=== PATIENT | male | born 1960 | race Hispanic/Latino ===

== ENCOUNTER 2021-08-31 21:45 | Inpatient (IN) | payer BC ==
[2021-08-31 22:38] LABS: Absolute Lymphocytes (CBC) 2.5 K/uL (0.7-4.9); Basophils % 0.6 % (0-1.3); Hematocrit 35.9 % (39.6-49.0); MPV 7.7 fL (7.6-11.3); Protime INR 1.13; RBC Red Blood Cell Count 4.24 M/uL (4.33-5.43)
[2021-08-31 22:53] LABS: ALT/SGPT 45 U/L (12-78); AST/SGOT 22 U/L (15-37); Albumin 3.7 g/dL (3.4-5.0); Alkaline Phosphatase 65 U/L (45-117); BUN Blood Urea Nitrogen 20 mg/dL (7-18); Bicarbonate 27 mmol/L (21-32); Bilirubin Direct < 0.1 mg/dL (0-0.2); Bilirubin Total 0.3 mg/dL (0.2-1.0); Glucose Level 139 mg/dL (74-106); Magnesium 1.7 mg/dL (1.8-2.4); NT PRO-BNP 480 pg/mL (<125); Potassium 3.9 mmol/L (3.5-5.1); Protein, Total 7.2 g/dL (6.4-8.2); Sodium Level 140 mmol/L (136-145); Troponin (Emerg Dept Use Only) < 0.02 ng/mL (0.0-0.045)
--- NOTE | 2021-08-31 23:07 | ER ---
Nurse's Notes [facility] Name: Arya Muro Jr Age: 60 yrs Sex: Male : 1960 Arrival Date: 08/31/2021 Time: 21:49 Bed 20 Private MD: Diagnosis: Chest pain, unspecified Presentation: 08/31 21:54 Chief complaint: Patient states: INTERMITTENT LEFT SIDED CP X 3 WEEKS, WORSE TODAY. sj1 PAIN RESOLVED AT THIS TIME. DENIES N/V/D AND SOB. Coronavirus screen: Vaccine status: Patient reports receiving the 2nd dose of the covid vaccine. Ebola Screen: No symptoms or risks identified at this time. Initial Sepsis Screen: Does the patient meet any 2 criteria? No. Patient's initial sepsis screen is negative. Does the patient have a suspected source of infection? No. Patient's initial sepsis screen is negative. Risk Assessment: Do you want to hurt yourself or someone else? Patient reports no desire to harm self or others. Onset of symptoms was August 10, 2021. 21:54 Method Of Arrival: Ambulatory [facility] 21:54 Acuity: VANESSA 3 sj1 09/01 01:08 Note phone report given to Ha RUBIO. pt updated on bed placement. Pt ready for kc4 transport with belongings. Triage Assessment: 08/31 21:57 General: Appears in no apparent distress. comfortable, Behavior is calm, cooperative, sj1 appropriate for age. Cardiovascular:. 22:00 Pain:. Pain: Complains of pain in chest Pain does not radiate. Pain currently is 0 out sj1 of 10 on a pain scale. at worst was 8 out of 10 on a pain scale. Quality of pain is described as sharp, Pain began. 22:24 EENT: No deficits noted. No signs and/or symptoms were reported regarding the EENT kc4 system. Neuro: No deficits noted. Cardiovascular: Reports chest pain, Denies lightheadedness, nausea, shortness of breath, syncope, vomiting, Heart tones present Capillary refill < 3 seconds JVD is absent Patient's skin is warm and dry. Pulses are all present. Edema is absent. Rhythm is sinus bradycardia Chest pain is described as mild, Pain is 4 out of 10 on a pain scale. quality is sharp. Respiratory: No deficits noted. Airway is patent Breath sounds are clear bilaterally. GI: No deficits noted. No signs and/or symptoms were reported involving the gastrointestinal system. : No deficits noted. No signs and/or symptoms were reported regarding the genitourinary system. Derm: No deficits noted. No signs and/or symptoms reported regarding the dermatologic system. Historical: - Allergies: 21:57 No Known Allergies; sj1 - PMHx: 21:57 Diabetes mellitus; Hypertensive disorder; Hypercholesterolemia; Glaucoma; sj1 - PSHx: 21:57 CATARACT; KNEE SURGERY; sj1 - Immunization history:: Client reports receiving the 2nd dose of the Covid vaccine. - Social history:: Smoking status: Patient denies any tobacco usage or history of. Screenin:33 Abuse screen: Denies threats or abuse. Denies injuries from another. Nutritional kc4 screening: No deficits noted. On no prescribed diet Difficulty chewing/swallowing? No. Tuberculosis screening: No symptoms or risk factors identified. Never had TB. Possible symptoms: None Risk factors: None Intervention for positive screen:. Fall Risk None identified. No fall in past 12 months (0 pts). No secondary diagnosis (0 pts). IV access (20 points). Ambulatory Aid- None/Bed Rest/Nurse Assist (0 pts). Gait- Normal/Bed Rest/Wheelchair (0 pts) Mental Status- Oriented to own ability (0 pts). Total Lala Fall Scale indicates No Risk (0-24 pts). Assessment: 22:33 Pain: Complains of pain in chest Pain does not radiate. Pain. kc4 22:39 General: Appears in no apparent distress. comfortable, obese, Behavior is calm, kc4 cooperative, appropriate for age. Pain:. Neuro: No deficits noted. Level of Consciousness is awake, alert, obeys commands, Oriented to person, place, time, situation, Appropriate for age. Cardiovascular: No deficits noted. Respiratory: No deficits noted. GI: No deficits noted. No signs and/or symptoms were reported involving the gastrointestinal system. : No deficits noted. No signs and/or symptoms were reported regarding the genitourinary system. EENT: No deficits noted. No signs and/or symptoms were reported regarding the EENT system. Derm: No deficits noted. No signs and/or symptoms reported regarding the dermatologic system. Musculoskeletal: No deficits noted. No signs and/or symptoms reported regarding the musculoskeletal system. 09/01 00:48 Reassessment: Patient and/or family updated on plan of care and expected duration. Pain kc4 level reassessed. Patient is alert, oriented x 3, equal unlabored respirations, skin warm/dry/pink. Patient denies pain at this time. Patient states feeling better. Vital Signs: 08/31 21:54 BP 179 / 78; Pulse 65; Resp 18; Temp 98.1; Pulse Ox 97% on R/A; Weight 111.13 kg (R); sj1 Height 5 ft. 2 in. (157.48 cm); Pain 0/10; 22:34 BP 173 / 65 LA Sitting (auto/reg); Pulse 58 MON; Resp 20 S; Temp 98.0(O); Pulse Ox 100% kc4 on R/A; Pain 4/10; 23:00 BP 169 / 70; Pulse 54; Resp 18; Temp 98.8(O); Pulse Ox 100% on R/A; Pain 0/10; kc4 09/01 00:47 BP 171 / 68; Pulse 50; Resp 18; Temp 98.8; Pulse Ox 100% on R/A; Pain 0/10; kc4 08/31 21:54 Body Mass Index 44.81 (111.13 kg, 157.48 cm) sj1 Vitals: 08/31 22:34 Cardiac Rhythm Assessment Sinus juan antonio. kc4 Iván Coma Score: 22:39 Eye Response: spontaneous(4). Verbal Response: oriented(5). Motor Response: obeys kc4 commands(6). Total: 15. ED Course: 21:49 Patient arrived in ED. bp1 21:57 Triage completed. sj1 21:58 Narda Balderas [facility]NP-C [facility]. kb 21:58 Emmanuel Gtz MD is Attending Physician. kb 22:09 Caitlin Alexander is Primary Nurse. kc4 22:20 No apparent distress. kc4 22:20 No provider procedures requiring assistance completed. Inserted saline lock: 18 gauge kc4 in right antecubital area, using aseptic technique. Patient maintains SpO2 saturation greater than 95% on room air. 22:22 Basic Metabolic Panel Sent. kc4 22:22 CBC with Diff Sent. kc4 22:22 LFT's Sent. kc4 22:22 Magnesium Sent. kc4 22:22 NT PRO-BNP Sent. kc4 22:23 PT-INR Sent. kc4 22:23 Troponin (emerg Dept Use Only) Sent. kc4 22:34 Inserted. kc4 22:34 Patient has correct armband on for positive identification. Placed in gown. Bed in low kc4 position. Call light in reach. Side rails up X 1. 22:35 XRAY Chest (1 view) In Process Unspecified. EDMS 22:39 monitoring specialist on. Pulse ox on. NIBP on. kc4 23:01 Arm band placed on right wrist. kc4 23:06 Suha Parker MD is Hospitalizing Provider. kb 23:09 COVID-19 (Coronavirus) Document "Date of Onset" if Symptomatic Sent. kc4 09/01 01:08 Patient admitted, IV remains in place. kc4 Administered Medications: No medications were administered Outcome: 08/31 23:06 Decision to Hospitalize by Provider. kb 09/01 01:07 Admitted to Med/surg accompanied by nurse, via wheelchair, room 208, Report called to vladislav Bonner RN Condition: improved Instructed on the need for admit. 01:13 Patient left the ED. kc4 Signatures: Dispatcher [employer] EDMS Narda Balderas, CHOIR ACCOMPANIST-C CHOIR ACCOMPANIST-Ckb Danika Jennings Kourtney kc4 Carisa Baird, RN RN sj1 Corrections: (The following items were deleted from the chart) 08/31 22:00 21:57 Pain: Denies pain. sj1 sj1 23:27 23:09 CORONAVIRUS drawn and sent. [facility] EDMS
--- NOTE | 2021-08-31 23:07 | EDPHYS ---
Physician Documentation [facility] Name: Arya Muro Jr Age: 60 yrs Sex: Male : 1960 Arrival Date: 08/31/2021 Time: 21:49 Bed 20 Private MD: ED Physician Emmanuel Gtz HPI: 08/31 23:27 This 60 yrs old Male presents to ER via Ambulatory with complaints of Chest kb Pain. 23:27 The patient or guardian reports chest pain that is located primarily in the chest kb diffusely. Onset: 3 week(s) ago. The pain does not radiate. Associated signs and symptoms: Pertinent positives: shortness of breath. The chest pain is described as a pressure. Duration: The patient or guardian reports multiple episodes. Modifying factors: The symptoms are alleviated by rest, the symptoms are aggravated by activity. Severity of pain: At its worst the pain was moderate in the emergency department the pain is unchanged. The patient has not experienced similar symptoms in the past. The patient has not recently seen a physician. Pt reports intermittent chest pain for 3-4 weeks with shortness of breath on exertion. States it became more intense today. Historical: - Allergies: 21:57 No Known Allergies; sj1 - PMHx: 21:57 Diabetes mellitus; Hypertensive disorder; Hypercholesterolemia; Glaucoma; sj1 - PSHx: 21:57 CATARACT; KNEE SURGERY; sj1 - Immunization history:: Client reports receiving the 2nd dose of the Covid vaccine. - Social history:: Smoking status: Patient denies any tobacco usage or history of. ROS: 23:26 Constitutional: Negative for fever, chills, and weight loss. kb 23:26 Cardiovascular: Positive for chest pain, Negative for edema, orthopnea, palpitations, paroxysmal nocturnal dyspnea. 23:26 Respiratory: Positive for dyspnea on exertion, Negative for cough, hemoptysis, orthopnea, pleurisy, shortness of breath, sputum production, wheezing. 23:26 All other systems are negative. Exam: 23:26 Constitutional: This is a well developed, well nourished patient who is awake, alert, kb and in no acute distress. Head/Face: Normocephalic, atraumatic. ENT: Moist Mucous membranes Respiratory: Respirations even and unlabored. No increased work of breathing, no retractions or nasal flaring. Skin: Warm, dry with normal turgor. Normal color. MS/ Extremity: Pulses equal, no cyanosis. Neurovascular intact. Full, normal range of motion. Neuro: Awake and alert, GCS 15, oriented to person, place, time, and situation. Moves all extremities. Normal gait. Psych: Awake, alert, with orientation to person, place and time. Behavior, mood, and affect are within normal limits. 23:26 Cardiovascular: Rate: normal, Heart sounds: murmur. Vital Signs: 21:54 BP 179 / 78; Pulse 65; Resp 18; Temp 98.1; Pulse Ox 97% on R/A; Weight 111.13 kg (R); sj1 Height 5 ft. 2 in. (157.48 cm); Pain 0/10; 22:34 BP 173 / 65 LA Sitting (auto/reg); Pulse 58 MON; Resp 20 S; Temp 98.0(O); Pulse Ox 100% kc4 on R/A; Pain 4/10; 23:00 BP 169 / 70; Pulse 54; Resp 18; Temp 98.8(O); Pulse Ox 100% on R/A; Pain 0/10; kc4 09/01 00:47 BP 171 / 68; Pulse 50; Resp 18; Temp 98.8; Pulse Ox 100% on R/A; Pain 0/10; kc4 08/31 21:54 Body Mass Index 44.81 (111.13 kg, 157.48 cm) sj1 Iván Coma Score: 08/31 22:39 Eye Response: spontaneous(4). Verbal Response: oriented(5). Motor Response: obeys kc4 commands(6). Total: 15. MDM: 22:02 Patient medically screened. kb 23:05 Data reviewed: vital signs, nurses notes. Data interpreted: Pulse oximetry: on room air kb is 100 %. Interpretation: normal. Counseling: I had a detailed discussion with the patient and/or guardian regarding: the historical points, exam findings, and any diagnostic results supporting the discharge/admit diagnosis, lab results, radiology results, the need for further work-up and treatment in the hospital. Physician consultation: Jimmie ARMANDO was contacted at 23:06, regarding admission, to the telemetry unit. patient's condition, and will see patient in ED, shortly. 08/31 21:58 Order name: Basic Metabolic Panel; Complete Time: 22:58 kb 08/31 21:58 Order name: CBC with Diff; Complete Time: 22:41 kb 08/31 21:58 Order name: LFT's; Complete Time: 22:58 kb 08/31 21:58 Order name: Magnesium; Complete Time: 22:58 kb 08/31 21:58 Order name: NT PRO-BNP; Complete Time: 22:58 kb 08/31 21:58 Order name: PT-INR; Complete Time: 22:41 kb 08/31 21:58 Order name: Troponin (emerg Dept Use Only); Complete Time: 22:58 kb 08/31 21:58 Order name: XRAY Chest (1 view) kb 08/31 21:58 Order name: EKG; Complete Time: 21:59 kb 08/31 21:58 Order name: Cardiac monitoring; Complete Time: 22:24 kb 08/31 23:07 Order name: COVID-19 (Coronavirus) Document "Date of Onset" if Symptomatic kb 08/31 23:28 Order name: SARS-COV-2 RT PCR; Complete Time: 00:44 EDMS 08/31 23:40 Order name: CONS Physician Consult EDMS 08/31 21:58 Order name: EKG - Nurse/Tech; Complete Time: 22:23 kb 08/31 21:58 Order name: IV Saline Lock; Complete Time: 22:22 kb 08/31 21:58 Order name: Labs collected and sent; Complete Time: 22:22 kb 08/31 21:58 Order name: O2 Per Protocol; Complete Time: 22:22 kb 08/31 21:58 Order name: O2 Sat Monitoring; Complete Time: 22:22 kb Administered Medications: No medications were administered Disposition: 09/01 03:45 Co-signature as Attending Physician, Emmanuel Gtz MD I agree with the assessment and rn plan of care. Attestation: The patient's history, exam findings, diagnostics, and a summary of any interventions or procedures was reviewed in detail with Narda BAEZ. Disposition Summary: 08/31/21 23:06 Hospitalization Ordered Hospitalization Status: Observation kb Provider: Suha Parker Location: Telemetry/MedSurg (observation) kb Condition: Stable kb Problem: new kb Symptoms: are unchanged kb Bed/Room Type: Standard Room Assignment: 208(09/01/21 00:31) mw Diagnosis - Chest pain, unspecified samira Discharge Instructions: - Discharge Summary Sheet kc4 Forms: - Medication Reconciliation Form kb - SBAR form kc4 Signatures: Dispatcher [employer] EDMS Narda Balderas FNP-C FNP-Ckb Webb, Martha, RN RN Emmanuel Aguayo MD MD rn Johnson, Sade, RN RN sj1 Corrections: (The following items were deleted from the chart) 08/31 23:27 23:07 CORONAVIRUS ordered. [facility] 09/01 00:31 08/31 23:06 samira mccabe
--- NOTE | 2021-09-01 00:52 | P.HP ---
Certification for Inpatient Patient admitted to: Observation With expected LOS: <2 Midnights Patient will require the following post-hospital care: None Practitioner: I am a practitioner with admitting privileges, knowledge of patient current condition, hospital course, and medical plan of care. Services: Services provided to patient in accordance with Admission requirements found in Title 42 Section 412.3 of the Code of Federal Regulations <Jimmie Baird - Last Filed: 09/01/21 00:47> Patient History Date of Service: 08/31/21 Reason for admission: chest pain History of Present Illness: Mr. Muro is a 60 yo M with HTN, HLD, DM who presents with 3 weeks of intermittent left sided 10/10 stabbing/squeezing chest pain lasting for 5 minutes a time, worse with movement and relieved with rest and massaging his chest. The episode today was the worst is has ever been. Denies N/V, sob, diaphoresis, palpitations, vision changes. Has never had a full workup by a tobacco drier operator. He was told by his PCP that he had had a 'slight heart attack' in the past. His father has had a stroke. H/H 11.8, BNP 480, initial troponin negative. - Past Medical/Surgical History -: HTN -: HLD -: DM -: glaucoma -: cataract surgery -: knee surgery - Family History Father -: Stroke - Social History Smoking Status: Never smoker Alcohol use: No CD- Drugs: No Caffeine use: Yes Place of Residence: Home <Ann Bairdgreta Lao - Last Filed: 09/01/21 00:47> Date of Service: 09/01/21 <Suha Parker - Last Filed: 09/03/21 10:52> Review of Systems 10-point ROS is otherwise unremarkable General: Unremarkable Eyes: Unremarkable ENT: Unremarkable Respiratory: Unremarkable Cardiovascular: Chest Pain, As per HPI Gastrointestinal: Unremarkable Musculoskeletal: Unremarkable Integumentary: Unremarkable Neurological: Unremarkable Lymphatics: Unremarkable <Ann Bairdgreta Lao - Last Filed: 09/01/21 00:47> Physical Examination - Physical Exam General: Alert, In no apparent distress, Oriented x3, Cooperative HEENT: Atraumatic, PERRLA, Mucous membr. moist/pink, EOMI, Sclerae nonicteric Neck: Supple, 2+ carotid pulse no bruit, No LAD, Without JVD or thyroid abnormality Respiratory: Clear to auscultation bilaterally, Normal air movement Cardiovascular: No edema, Regular rate/rhythm, Normal S1 S2, Other (murmur) Gastrointestinal: Normal bowel sounds, No tenderness Musculoskeletal: No tenderness Integumentary: No rashes Neurological: Normal speech, Normal strength at 5/5 x4 extr, Normal tone, Normal affect Lymphatics: No axilla or inguinal lymphadenopathy - Studies Laboratory Data (last 24 hrs) 08/31/21 22:19: PT 13.0 H, INR 1.13 08/31/21 22:19: WBC 8.20, Hgb 11.8 L, Hct 35.9 L, Plt Count 269 08/31/21 22:19: Sodium 140, Potassium 3.9, BUN 20 H, Creatinine 0.82, Glucose 139 H, Magnesium 1.7 L, Total Bilirubin 0.3, AST 22, ALT 45, Alkaline Phosphatase 65 <Jimmie Baird - Last Filed: 09/01/21 00:47> Assessment and Plan - Problems (Diagnosis) (1) Chest pain Current Visit: Yes Status: Acute Qualifiers: Chest pain type: unspecified Qualified Code(s): R07.9 - Chest pain, unspecified (2) HTN (hypertension) Current Visit: Yes Status: Chronic Qualifiers: Hypertension type: primary hypertension Qualified Code(s): I10 - Essential (primary) hypertension (3) HLD (hyperlipidemia) Current Visit: Yes Status: Chronic Qualifiers: Hyperlipidemia type: unspecified Qualified Code(s): E78.5 - Hyperlipidemia, unspecified (4) T2DM (type 2 diabetes mellitus) Current Visit: Yes Status: Chronic Qualifiers: Diabetes mellitus intermediate card tender insulin use: without intermediate card tender use Diabetes mellitus complication status: without complication Qualified Code(s): E11.9 - Type 2 diabetes mellitus without complications - Plan cardiology consulted, on tele trend troponins, repeat EKG ECHO pending daily ASA, metoprolol, statin PRN morphine and nitroglycerin sliding scale insulin and accuchecks, A1c pending hydralazine PRN for BP spikes magnesium replacement, anemia workup pending DVT ppx Discharge Plan: Home Plan to discharge in: 24 Hours - Advance Directives Does patient have a Living Will: No Does patient have a Durable POA for Healthcare: No - Code Status/Comfort Care Code Status Assessed: Yes (full code ) Critical Care: No Time Spent Managing Pts Care (In Minutes): 70 <OliJimmie Shilo - Last Filed: 09/01/21 00:47> - Problems (Diagnosis) (1) Unstable angina Current Visit: Yes Status: Acute (2) Aortic stenosis Current Visit: Yes Status: Acute (3) HLD (hyperlipidemia) Current Visit: Yes Status: Chronic Qualifiers: Hyperlipidemia type: unspecified Qualified Code(s): E78.5 - Hyperlipidemia, unspecified (4) HTN (hypertension) Current Visit: Yes Status: Chronic Qualifiers: Hypertension type: primary hypertension Qualified Code(s): I10 - Essential (primary) hypertension (5) T2DM (type 2 diabetes mellitus) Current Visit: Yes Status: Chronic Qualifiers: Diabetes mellitus prison insulin use: without prison use Diabetes mellitus complication status: without complication Qualified Code(s): E11.9 - Type 2 diabetes mellitus without complications <Suha Parker - Last Filed: 09/03/21 10:52> Date of Service: 09/01/21 Subjective Chart reviewed. Agree with HPI as above Review of Systems 10-point ROS is otherwise unremarkable Physical Examination - Vital Signs Reviewed - Physical Exam General: Alert, In no apparent distress, Oriented x3 Respiratory: Clear to auscultation bilaterally, Normal air movement Cardiovascular: Regular rate/rhythm, Normal S1 S2, Systolic murmur Gastrointestinal: Normal bowel sounds, Soft and benign, Non-distended, No tender ness Musculoskeletal: No clubbing, No swelling, No tenderness Assessment & Plan - Problems (Diagnosis) (1) Unstable angina Current Visit: Yes Status: Acute (2) Aortic stenosis Current Visit: Yes Status: Acute (3) HLD (hyperlipidemia) Current Visit: Yes Status: Chronic Qualifiers: Hyperlipidemia type: unspecified Qualified Code(s): E78.5 - Hyperlipidemia, unspecified (4) HTN (hypertension) Current Visit: Yes Status: Chronic Qualifiers: Hypertension type: primary hypertension Qualified Code(s): I10 - Essential (primary) hypertension (5) T2DM (type 2 diabetes mellitus) Current Visit: Yes Status: Chronic Qualifiers: Diabetes mellitus intermediate card tender insulin use: without intermediate card tender use Diabetes mellitus complication status: without complication Qualified Code(s): E11.9 - Type 2 diabetes mellitus without complications - Plan Continue with plan of care as mentioned below: 1. Serial troponins and EKG have been negative 2. Appreciate Cardiology consultation 3. Cardiac catheterization Saturday 4. Continue with anti-platelet therapy, anti coagulation, beta-lucho, statin, and O2 as needed 5. IV morphine for pain 6. Nitro p.r.n. 7. Strict blood pressure and blood sugar control 8. GI and DVT prophylaxis Discharge Plan: Home Plan to discharge in: Greater than 2 days - Advance Directives Does patient have a Living Will: No Does patient have a Durable POA for Healthcare: No - Code Status/Comfort Care Code Status Assessed: Yes Code Status: Full Code Critical Care: No Time Spent Managing PTS Care (In Minutes): 35 <Suha Parker - Last Filed: 09/03/21 10:52>
[2021-09-01 01:54] VITALS: BMI 44.8
[2021-09-01] MEDS ORDERED: NITROGLYCERIN 0.4 MG/TAB SL PRN (01:55)
[2021-09-01] MEDS ORDERED: ONDANSETRON 4 MG/2 ML VIAL IV PRN (01:55)
[2021-09-01] MEDS: HYDRALAZINE HCL 20 MG/ML VIAL IV PRN ×2 (02:25→20:47)
[2021-09-01] MEDS: MORPHINE 2 MG/ML SYR IV PRN ×2 (02:26→22:10)
[2021-09-01 03:12] LABS: Absolute Lymphocytes (CBC) 3.2 K/uL (0.7-4.9); Basophils % 0.9 % (0-1.3); Hematocrit 36.7 % (39.6-49.0); Lymphocytes % 34.3 % (15.3-44.8); MPV 7.7 fL (7.6-11.3); RBC Red Blood Cell Count 4.35 M/uL (4.33-5.43)
[2021-09-01 03:50] LABS: ALT/SGPT 40 U/L (12-78); AST/SGOT 21 U/L (15-37); Albumin 3.5 g/dL (3.4-5.0); Alkaline Phosphatase 51 U/L (45-117); BUN Blood Urea Nitrogen 20 mg/dL (7-18); Bicarbonate 26 mmol/L (21-32); Bilirubin Total 0.3 mg/dL (0.2-1.0); Ferritin 14.1 ng/mL (26-388); Folic Acid, (Folate) 11.5 ng/mL (3.1-17.5); Glucose Level 125 mg/dL (74-106); HDL Cholesterol 45 mg/dL (40-60); LDL Cholesterol, Calculated 113 (<130); Magnesium 1.6 mg/dL (1.8-2.4); Phosphorus 3.7 mg/dL (2.5-4.9); Potassium 4.1 mmol/L (3.5-5.1); Protein, Total 7.2 g/dL (6.4-8.2); Sodium Level 141 mmol/L (136-145); Transferrin 322 mg/dL (200-360)
[2021-09-01] MEDS: INSULIN -REGULAR HUMAN 50 UNIT/0.5 ML ML SQ SCH ×4 (07:30→21:00)
[2021-09-01] MEDS ORDERED: PNEUMOCOCCAL VACCINE 0.5 ML IMVAC ONE (08:00)
[2021-09-01] MEDS ORDERED: INFLUENZA VACCINE (for 6+ mo) 0.5 ML DOSE IMVAC ONE (08:00)
--- NOTE | 2021-09-01 08:26 | RAD REPORT ---
EXAM DESCRIPTION: RAD - Chest Single View - 08/31/2021 10:34 pm CLINICAL HISTORY: CHEST PAIN COMPARISON: None TECHNIQUE: AP portable chest image was obtained 08/31/2021 10:34 pm . FINDINGS: No focal lung parenchymal process. Interstitial pattern is mildly prominent due to body whittaker bitus and under penetrated portable technique affects. Significant failure or volume overload not princess pected. Heart and vasculature are normal. No measurable pleural effusion and no pneumothorax. No acut e bony abnormality seen. No acute aortic findings suspected. IMPRESSION: Limited portable chest with no acute cardiopulmonary finding.
[2021-09-01] MEDS ORDERED: ENOXAPARIN 40 MG/0.4 ML SQ SCH (09:00)
[2021-09-01] MEDS: ACETAMINOPHEN 500 MG TAB PO PRN (11:06)
[2021-09-01] MEDS: ASPIRIN EC 81 MG TAB PO SCH (11:06)
[2021-09-01] MEDS: METOPROLOL TAR 50 MG TAB PO SCH ×2 (11:08→20:45)
[2021-09-01] MEDS: hydroCHLOROthiazide 12.5 MG CAP PO SCH (11:08)
[2021-09-01] MEDS: lisinopriL 10 MG TAB PO SCH (11:09)
[2021-09-01] MEDS: OXYBUTYNIN CHLORIDE 5 MG TAB PO SCH (20:45)
[2021-09-01] MEDS: ATORVASTATIN 40 MG TAB PO SCH (20:45)
--- NOTE | 2021-09-01 21:23 | CON ---
Date of Consultation: 09/01/2021 Reason For Consultation: Chest pain. History Of Present Illness: This is a 60-year-old male with a history of hypertension, diabetes, dys lipidemia, presented with chest pain, intermittent left-side squeezing-type, lasts for about 5-10 min utes, worsens with activities. This has been going on for about 2 weeks and getting worse. This for ashish him to come the emergency room. Denies having any other complaints but continues to have chest p ain throughout the day. Past Medical History: Hypertension, dyslipidemia, and diabetes. Medications: Refer to reconciliation sheet for detailed list. Allergies: NO KNOWN DRUG ALLERGIES. Family History: No premature coronary artery disease or cancer. Social History: Does not smoke or drink. Does not use any drugs. Review of Systems: All systems reviewed and were negative except as mentioned in HPI. Physical Examination: Vital Signs: His blood pressure is 142/86, heart rate is 58, temperature is 97.2, breathing at 16. General: Pleasant middle-aged male, in no distress. Head and Neck: Pupils are equal, reactive to light. Intact eye movements. No JVD. No cervical lym phadenopathy. Neck is supple. Thyroid is not enlarged. Lungs: Clear to auscultation bilaterally. No rhonchi, rales, or crackles. No accessory muscle use. Heart: Regular rate and rhythm with aortic systolic murmur. Abdomen: Soft and nontender. Bowel sounds positive. No organomegaly. No muscle tenderness. No ri gidity or rebound. Extremities: No edema, clubbing, or cyanosis. Intact pulses. Skin: No rashes. Neurologic: Alert, awake, oriented x3. No acute focal deficits. Investigations: Troponins x3 are negative. Assessment And Recommendation: 1.Chest pain, which could represent unstable angina. The patient continues to have chest pain. Tro ponins are negative. Agree with aspirin therapy and beta lucho. I also placed the patient on nitr oglycerin patch or use sublingual nitroglycerin p.r.n. The patient will need further ischemic workup , and at this point, we will elect for coronary angiogram to be done. If the patient is chest pain-f ree by tomorrow, the angiogram can be arranged for as an outpatient. Otherwise, we will keep the pat ient throughout the week, and if he continues to be symptomatic, plan for coronary angiogram on . 2.Aortic valve stenosis. By echocardiogram, it appears to be a narrowed valve. The severity is und etermined because of the poor quality of the echocardiogram. I recommend left and right heart cathet erization to further evaluate the presence of severe aortic valve stenosis as a cause of his symptoms . 3.Hypertension. Blood pressure is uncontrolled. Adjust lisinopril as needed for better blood press ure control. Thank you for the consult. /MALORIE Voice ID: [id number] Report ID: [id number]
[2021-09-02] MEDS: INSULIN -REGULAR HUMAN 50 UNIT/0.5 ML ML SQ SCH ×4 (07:30→20:52)
[2021-09-02] MEDS: ASPIRIN EC 81 MG TAB PO SCH (09:25)
[2021-09-02] MEDS: hydroCHLOROthiazide 12.5 MG CAP PO SCH (09:25)
[2021-09-02] MEDS: Enoxaparin 120 MG/0.8 ML SYR SQ SCH ×2 (09:26→20:49)
[2021-09-02] MEDS: lisinopriL 10 MG TAB PO SCH (09:26)
[2021-09-02] MEDS: ACETAMINOPHEN 500 MG TAB PO PRN (09:28)
[2021-09-02] MEDS: METOPROLOL TAR 50 MG TAB PO SCH ×2 (09:29→20:51)
[2021-09-02] MEDS: OXYBUTYNIN CHLORIDE 5 MG TAB PO SCH (20:51)
[2021-09-02] MEDS: ATORVASTATIN 40 MG TAB PO SCH (20:51)
[2021-09-03] MEDS: MORPHINE 2 MG/ML SYR IV PRN (04:06)
[2021-09-03 06:40] LABS: Magnesium 1.9 mg/dL (1.8-2.4); Potassium 4.3 mmol/L (3.5-5.1)
[2021-09-03] MEDS: INSULIN -REGULAR HUMAN 50 UNIT/0.5 ML ML SQ SCH ×4 (07:30→20:58)
[2021-09-03] MEDS: hydroCHLOROthiazide 12.5 MG CAP PO SCH (09:00)
[2021-09-03] MEDS: METOPROLOL TAR 50 MG TAB PO SCH ×2 (09:00→20:56)
[2021-09-03] MEDS: lisinopriL 10 MG TAB PO SCH (09:00)
[2021-09-03] MEDS: Enoxaparin 120 MG/0.8 ML SYR SQ SCH (09:09)
[2021-09-03] MEDS: ASPIRIN EC 81 MG TAB PO SCH (09:10)
--- NOTE | 2021-09-03 10:50 | P.PN ---
Subjective Date of Service: 09/02/21 Patient did have some chest pain last night. Pain was 9/10. Currently the pain is a 3/10. Spoke with Cardiology and plan is to do a heart catheterization on Saturday. Patient also with aortic stenosis which will be evaluated. Review of Systems 10-point ROS is otherwise unremarkable Physical Examination - Vital Signs Temperature: 97.9 F Blood Pressure: 113/62 Pulse: 72 Respirations: 18 Pulse Ox (%): 96 - Physical Exam General: Alert, In no apparent distress, Oriented x3 Respiratory: Clear to auscultation bilaterally, Normal air movement Cardiovascular: Regular rate/rhythm, Normal S1 S2, Systolic murmur Gastrointestinal: Normal bowel sounds, Soft and benign, Non-distended, No tenderness Musculoskeletal: No clubbing, No swelling, No tenderness - Studies Medications List Reviewed: Yes Assessment & Plan - Problems (Diagnosis) (1) Unstable angina Current Visit: Yes Status: Acute (2) Aortic stenosis Current Visit: Yes Status: Acute (3) HLD (hyperlipidemia) Current Visit: Yes Status: Chronic Qualifiers: Hyperlipidemia type: unspecified Qualified Code(s): E78.5 - Hyperlipidemia, unspecified (4) HTN (hypertension) Current Visit: Yes Status: Chronic Qualifiers: Hypertension type: primary hypertension Qualified Code(s): I10 - Essential (primary) hypertension (5) T2DM (type 2 diabetes mellitus) Current Visit: Yes Status: Chronic Qualifiers: Diabetes mellitus penitentiary insulin use: without penitentiary use Diabetes mellitus complication status: without complication Qualified Code(s): E11.9 - Type 2 diabetes mellitus without complications - Plan 1. Serial troponins and EKG have been negative 2. Appreciate Cardiology consultation 3. Cardiac catheterization in the morning 4. Anti-platelet therapy, anti coagulation, beta-lucho, statin, and O2 as needed 5. IV morphine for pain 6. Nitro p.r.n. 7. Strict blood pressure and blood sugar control 8. GI and DVT prophylaxis Discharge Plan: Home Plan to discharge in: Greater than 2 days - Advance Directives Does patient have a Living Will: No Does patient have a Durable POA for Healthcare: No - Code Status/Comfort Care Code Status Assessed: Yes Code Status: Full Code Critical Care: No Time Spent Managing PTS Care (In Minutes): 35
--- NOTE | 2021-09-03 10:55 | P.PN ---
Date of Service: 09/03/21 Subjective Patient without new complaints today. Plan for heart catheterization in the morning. NPO after midnight and hold Lovenox this evening Review of Systems 10-point ROS is otherwise unremarkable Physical Examination - Vital Signs Reviewed - Physical Exam General: Alert, In no apparent distress, Oriented x3 Respiratory: Clear to auscultation bilaterally, Normal air movement Cardiovascular: Regular rate/rhythm, Normal S1 S2, Systolic murmur Gastrointestinal: Normal bowel sounds, Soft and benign, Non-distended, No tenderness Musculoskeletal: No clubbing, No swelling, No tenderness Assessment & Plan - Problems (Diagnosis) (1) Unstable angina Current Visit: Yes Status: Acute (2) Aortic stenosis Current Visit: Yes Status: Acute (3) HLD (hyperlipidemia) Current Visit: Yes Status: Chronic Qualifiers: Hyperlipidemia type: unspecified Qualified Code(s): E78.5 - Hyperlipidemia, unspecified (4) HTN (hypertension) Current Visit: Yes Status: Chronic Qualifiers: Hypertension type: primary hypertension Qualified Code(s): I10 - Essential (primary) hypertension (5) T2DM (type 2 diabetes mellitus) Current Visit: Yes Status: Chronic Qualifiers: Diabetes mellitus prison insulin use: without prison use Diabetes mellitus complication status: without complication Qualified Code(s): E11.9 - Type 2 diabetes mellitus without complications - Plan Continue with plan of care as mentioned below: 1. Serial troponins and EKG have been negative; 2. Appreciate Cardiology consultation 3. Cardiac catheterization in the morning 4. Anti-platelet therapy, anti coagulation, beta-lucho, statin, and O2 as needed 5. IV morphine for pain 6. Nitro p.r.n. 7. Strict blood pressure and blood sugar control 8. GI and DVT prophylaxis
[2021-09-03] MEDS: OXYBUTYNIN CHLORIDE 5 MG TAB PO SCH (20:56)
[2021-09-03] MEDS: ATORVASTATIN 40 MG TAB PO SCH (20:57)
--- NOTE | 2021-09-03 23:14 | P.PN ---
Date of Service: 09/01/21 Subjective Patient evaluated. Chest pain is better. Still slightly there. Awaiting Cardiology input. Possible discharge later today. Review of Systems 10-point ROS is otherwise unremarkable Physical Examination - Vital Signs Reviewed - Physical Exam General: Alert, In no apparent distress, Oriented x3 Respiratory: Clear to auscultation bilaterally, Normal air movement Cardiovascular: Regular rate/rhythm, Normal S1 S2, Systolic murmur Gastrointestinal: Normal bowel sounds, Soft and benign, Non-distended, No tenderness Musculoskeletal: No clubbing, No swelling, No tenderness Extremity: No clubbing, no cyanosis, no edema Assessment & Plan - Problems (Diagnosis) (1) Unstable angina Current Visit: Yes Status: Acute (2) Aortic stenosis Current Visit: Yes Status: Acute (3) HLD (hyperlipidemia) Current Visit: Yes Status: Chronic Qualifiers: Hyperlipidemia type: unspecified Qualified Code(s): E78.5 - Hyperlipidemia, unspecified (4) HTN (hypertension) Current Visit: Yes Status: Chronic Qualifiers: Hypertension type: primary hypertension Qualified Code(s): I10 - Essential (primary) hypertension (5) T2DM (type 2 diabetes mellitus) Current Visit: Yes Status: Chronic Qualifiers: Diabetes mellitus fci insulin use: without fci use Diabetes mellitus complication status: without complication Qualified Code(s): E11.9 - Type 2 diabetes mellitus without complications - Plan Continue with plan of care as mentioned below: 1. Serial troponins and EKG have been negative; awaiting Cardiology input 2. Still with chest pain. May need to add anti coagulation pending Cardiology input 3. Echocardiogram pending 4. Anti-platelet therapy, anti coagulation if Cardiology agreeable, beta- lucho, statin, and O2 as needed 5. IV morphine for pain 6. Nitro p.r.n. 7. Strict blood pressure and blood sugar control 8. GI and DVT prophylaxis
[2021-09-04] MEDS: INSULIN -REGULAR HUMAN 50 UNIT/0.5 ML ML SQ SCH ×3 (07:30→16:30)
--- NOTE | 2021-09-04 08:12 | ECHO ---
HEIGHT: 5 ft 2 in WEIGHT: 245 lb 0 oz DATE OF STUDY: 09/01/[address]: Jimmie Baird 2-DIMENSIONAL: YES M.MODE: YES DOPPLER: YES COLOR FLOW: YES TDS: NO PORTABLE: NO DEFINITY: NO BUBBLE STUDY: NO DIAGNOSIS: CARIOMEGALY CARDIAC HISTORY: CATHERIZATION: NO SURGERY: NO PROSTHETIC VALVE: NO PACEMAKER: NO MEASUREMENTS (cm) DIASTOLIC (NORMALS) SYSTOLIC (NORMALS) IVSd 1.6 (0.6-1.2) LA Diam 3.5 (1.9-4.0) LVEF 67% LVIDd 3.5 (3.5-5.7) LVIDs 2.2 (2.0-3.5) %FS 36% LVPWd 1.5 (0.6-1.2) Ao Diam 2.7 (2.0-3.7) 2 DIMENSIONAL ASSESSMENT: RIGHT ATRIUM: NORMAL LEFT ATRIUM: NORMAL RIGHT VENTRICLE: NORMAL LEFT VENTRICLE: NORMAL TRICUSPID VALVE: NORMAL MITRAL VALVE: MILD MITRAL REGURGITATION PULMONIC VALVE: NORMAL AORTIC VALVE: THICKENED PERICARDIAL EFFUSION: NONE AORTIC ROOT: NORMAL LEFT VENTRICULAR WALL MOTION: NORMAL. DOPPLER/COLOR FLOW: SEE BELOW. COMMENTS: NORMAL LEFT VENTRICULAR EJECTION FRACTION 60-65%. NORMAL WALL MOTION. MODERATE AORTIC STENOSIS. MILD MITRAL REGURGITATION. TECHNOLOGIST: JAYCOB REAL
[2021-09-04] MEDS: METOPROLOL TAR 50 MG TAB PO SCH (08:44)
[2021-09-04] MEDS: ASPIRIN EC 81 MG TAB PO SCH (08:45)
[2021-09-04] MEDS: hydroCHLOROthiazide 12.5 MG CAP PO SCH (08:45)
[2021-09-04] MEDS: lisinopriL 10 MG TAB PO SCH (08:46)
--- NOTE | 2021-09-04 10:03 | P.PN ---
Subjective Date of Service: 09/04/21 Primary Care Provider: [facility] Chief Complaint: chest pain Subjective: Improving, Doing well (No more chest pain noted) Physical Examination - Vital Signs Temperature: 97.1 F Blood Pressure: 135/67 Pulse: 69 Respirations: 18 Pulse Ox (%): 100 - Studies Medications List Reviewed: Yes Assessment & Plan Discharge Plan: Home Plan to discharge in: 24 Hours Physician Review Additional Text: COVID: Negative CXR: COMPARISON: None TECHNIQUE: AP portable chest image was obtained 08/31/2021 10:34 pm . FINDINGS: No focal lung parenchymal process. Interstitial pattern is mildly prominent due to body habitus and under penetrated portable technique affects. Significant failure or volume overload not suspected. Heart and vasculature are normal. No measurable pleural effusion and no pneumothorax. No acute bony abnormality seen. No acute aortic findings suspected. IMPRESSION: Limited portable chest with no acute cardiopulmonary finding. ECHO: MEASUREMENTS (cm) DIASTOLIC (NORMALS) SYSTOLIC (NORMALS) IVSd 1.6 (0.6-1.2) LA Diam 3.5 (1.9-4.0) LVEF 67% LVIDd 3.5 (3.5-5.7) LVIDs 2.2 (2.0-3.5) %FS 36% LVPWd 1.5 (0.6-1.2) Ao Diam 2.7 (2.0-3.7) 2 DIMENSIONAL ASSESSMENT: RIGHT ATRIUM: NORMAL LEFT ATRIUM: NORMAL RIGHT VENTRICLE: NORMAL LEFT VENTRICLE: NORMAL TRICUSPID VALVE: NORMAL MITRAL VALVE: MILD MITRAL REGURGITATION PULMONIC VALVE: NORMAL AORTIC VALVE: THICKENED PERICARDIAL EFFUSION: NONE AORTIC ROOT: NORMAL LEFT VENTRICULAR WALL MOTION: NORMAL. DOPPLER/COLOR FLOW: SEE BELOW. COMMENTS: NORMAL LEFT VENTRICULAR EJECTION FRACTION 60-65%. NORMAL WALL MOTION. MODERATE AORTIC STENOSIS. MILD MITRAL REGURGITATION. Physical Exam: GENERAL: The patient is a well-developed, well-nourished, in no apparent distress. Alert and oriented x3. VITAL SIGNS: Reviewed HEENT: Neck supple. LUNGS: Clear to auscultation. No crackles or wheezes are heard. HEART: Regular rate and rhythm, no appreciable gallops, rubs, murmurs or extra heart sounds ABDOMEN: Soft, nontender, and nondistended. Positive bowel sounds. No hepatosplenomegaly was noted. EXTREMITIES: Without any cyanosis, clubbing, rash, lesions or peripheral edema. NEUROLOGIC: The patient is oriented to person, place and time. Strength and sensation are grossly intact. Face is symmetric. SKIN: Normal color, turgor and temperature. No ulcerations or rashes noted. Impression: Chest pain secondary to unstable angina Hypertension Hyperlipidemia Diabetes mellitus type 2 Urinary incontinence Obesity, BMI 44.8 Plan: Chest pain secondary to unstable angina: Ejection fraction within normal range at 60 to 65%. Moderate aortic stenosis noted. Patient to have heart catheterization today. Await findings and recommendations from cardiology. C ontinue aspirin, metoprolol, lisinopril, and Lipitor. Lovenox currently on hold due to heart catheterization. Hypertension: Improved. Continue with lisinopril 10 mg daily, metoprolol 50 mg 1 pill twice daily, and hydrochlorothiazide 12.5 mg daily Hyperlipidemia: Continue Lipitor 40 mg daily Diabetes mellitus type 2: Metformin held in preparation for heart catheterization. Continue insulin sliding scale. Urinary incontinence: Continue oxybutynin Obesity, BMI 44.8: We will address lifestyle modification education. Code Status: Full Code DVT prophylaxis: Lovenox Advanced Care Planning-30 minutes: Anticipate home in the next 24 hours. Time Spent Managing Pts Care (In Minutes): 55
[2021-09-04] MEDS ORDERED: HEPA 1000U/500MLS 1,000 UNIT/500 ML BAG IV ONE ×2 (11:00→15:56)
[2021-09-04 12:09] VITALS: TEMP 98
[2021-09-04] MEDS ORDERED: NA CHLORIDE 0.9% 500 ML ONE (14:27)
[2021-09-04] MEDS ORDERED: LIDOCAINE 1% 20 ML MDV ONE (15:07)
[2021-09-04] MEDS ORDERED: VERAPAMIL HCL 10 MG/4 ML VIAL IV ONE (15:08)
[2021-09-04] MEDS ORDERED: FENTANYL CITR 100 MCG/2 ML ONE (15:08)
[2021-09-04] MEDS ORDERED: MIDAZOLAM HCL 2 MG/2 ML INJ ONE (15:08)
[2021-09-04] MEDS ORDERED: ATROPINE SULF 1 MG/10 ML SYR IV ONE (15:09)
[2021-09-04] MEDS ORDERED: HEPARIN 5000 UNIT/ML 1 ML VIAL ONE (15:09)
--- NOTE | 2021-09-04 16:31 | OP ---
Date of Procedure: 09/04/2021 Surgeon: ROLAN GUILLEN Procedures Performed: 1.Selective coronary angiogram. 2.Left heart catheterization. 3.Right heart catheterization. Access: Right femoral artery 6-[place] closed with TR band, right IJ 7-[place] closed with manual pres sure. Complications: None. Bleeding: Less than 10 mL. Description Of Procedure: After risks, benefits, and alternatives were explained, the patient agreed to proceed and signed informed consent. The patient was brought into the cardiac catheterization la boratory, prepped and draped in usual sterile fashion. I accessed right femoral artery using a micro puncture kit and ultrasound and inserted 6-[place] sheath. Accessed right IJ using ultrasoun d and micropuncture kit and placed a 7-[place] sheath. Then, I took a 7-[place] balloon-tippe d [place] catheter through the IJ into the RA, RV, PA and wedge. Took the waveform and pressure, and th ermodilution cardiac output was obtained. Then, we removed the [place]. I took a 6-[place] JL4 catheter into the aortic root, engaged the left main, took standard views, and then exchanged for a 6-[place] JR4 catheter and engaged the RCA and took standard views. Then, I took a 4-[place] AL1 catheter into the aortic root with the [place] wire across the aortic valve and upon pullback, gradient was onl y 70 mmHg. Then, we removed the catheter and sheath and placed Angio-Seal for closure with good hemo stasis and the IJ sheath was removed with manual pressure and obtained hemostasis. Findings: 1.Left main is normal. 2.LAD; large and normal. In the mid section, there is a myocardial bridge. 3.The left circumflex is normal, codominant. 4.RCA; codominant and normal. 5.Normal filling pressures. 6.Mild aortic stenosis. Plan: Medical management. SR/MODL Voice ID: [id number] Report ID: [id number]
--- NOTE | 2021-09-04 16:49 | P.DS ---
Admission Date: 09/02/21 Discharge Date: 09/04/21 Primary Care Provider: Hermila Haynes Disposition: ROUTINE DISCHARGE Discharge Condition: GOOD Reason for Admission: chest pain Consultations: Cardiology-Dr. Hoffman Procedures: COVID: Negative CXR: COMPARISON: None TECHNIQUE: AP portable chest image was obtained 08/31/2021 10:34 pm . FINDINGS: No focal lung parenchymal process. Interstitial pattern is mildly prominent due to body habitus and under penetrated portable technique affects. Significant failure or volume overload not suspected. Heart and vasculature are normal. No measurable pleural effusion and no pneumothorax. No acute bony abnormality seen. No acute aortic findings suspected. IMPRESSION: Limited portable chest with no acute cardiopulmonary finding. ECHO: MEASUREMENTS (cm) DIASTOLIC (NORMALS) SYSTOLIC (NORMALS) IVSd 1.6 (0.6-1.2) LA Diam 3.5 (1.9-4.0) LVEF 67% LVIDd 3.5 (3.5-5.7) LVIDs 2.2 (2.0-3.5) %FS 36% LVPWd 1.5 (0.6-1.2) Ao Diam 2.7 (2.0-3.7) 2 DIMENSIONAL ASSESSMENT: RIGHT ATRIUM: NORMAL LEFT ATRIUM: NORMAL RIGHT VENTRICLE: NORMAL LEFT VENTRICLE: NORMAL TRICUSPID VALVE: NORMAL MITRAL VALVE: MILD MITRAL REGURGITATION PULMONIC VALVE: NORMAL AORTIC VALVE: THICKENED PERICARDIAL EFFUSION: NONE AORTIC ROOT: NORMAL LEFT VENTRICULAR WALL MOTION: NORMAL. DOPPLER/COLOR FLOW: SEE BELOW. COMMENTS: NORMAL LEFT VENTRICULAR EJECTION FRACTION 60-65%. NORMAL WALL MOTION. MODERATE AORTIC STENOSIS. MILD MITRAL REGURGITATION. Heart catheterization: Normal coronaries. No further intervention required. Medical problem list: Chest pain secondary to unstable angina status post heart catheterization showing normal coronaries Hypertension Hyperlipidemia Diabetes mellitus type 2 Urinary incontinence Obesity, BMI 44.8 Time Spent Managing Pts Care (In Minutes): 55 Brief History of Present Illness: 60-year-old male with history of diabetes, hypertension, hyperlipidemia presented to the emergency room with chest pain. Patient was admitted for further evaluation and treatment. Hospital Course: Patient presented with chest pain. Patient was admitted for further evaluation and treatment. Cardiac enzymes unremarkable. Patient continued to have chest pain suspicious for unstable angina. Echo showed ejection fraction around 60 to 65%. Moderate aortic stenosis noted. Cardiology evaluated the patient. Cardiology recommended heart catheterization to further evaluate his condition. Heart catheterization performed showed normal coronaries. At discharge patient without chest pain. Blood pressure improved. At discharge patient may continue with aspirin 81 mg daily, metoprolol 50 mg 1 pill twice daily, lisinopril hydrochlorothiazide 10/12.5 mg daily, and Lipitor 40 mg daily. Recommend follow-up with PCP within 1 week to follow-up his hospitalization. Patient may return to work on Saturday. Patient with hypertension. Medications adjusted. Blood pressure improved with current medication. At discharge patient will continue with metoprolol 50 mg 1 pill twice daily and lisinopril hydrochlorothiazide 10/12.5 mg daily. Recommend to maintain blood pressure less than 130/80. Further adjustment can be done by his PCP. Follow-up with PCP and cardiology to monitor his progress. Patient with hyperlipidemia. LDL 113. At discharge patient will continue with Lipitor 40 mg daily. Recommend to recheck labCMP and fasting lipid panel in 1 to 3 months to monitor his progress. Patient with diabetes mellitus type 2. Hemoglobin A1c 7.3. Metformin was held in preparation for heart catheterization. Patient will need to continue to hold Metformin for at least 48 hours. Metformin can be restarted after 48 hours. Recommend to maintain blood sugar less than 140 fasting and less than 200 after meals. Further adjustment can be done by his PCP if blood sugar remains above 200. Recommend to recheck hemoglobin A1c every 3 months to monitor his progress. Recommend follow-up with PCP to further monitor and address. Patient with urinary incontinence. At discharge patient may continue with oxybutynin 5 mg daily. Patient with obesity, BMI 44.8. Lifestyle modification education provided. Vital Signs/Physical Exam: Temp Pulse Resp BP Pulse Ox 98 F 61 15 128/68 98 09/04/21 12:14 09/04/21 16:15 09/04/21 16:15 09/04/21 16:15 09/04/21 12:00 General: Alert, In no apparent distress, Oriented x3, Cooperative HEENT: Atraumatic Neck: Supple Respiratory: Clear to auscultation bilaterally, Normal air movement Cardiovascular: Normal pulses, Regular rate/rhythm Gastrointestinal: Normal bowel sounds, No ascites Musculoskeletal: No erythema, No tenderness, No warmth Integumentary: No tenderness/swelling Neurological: Normal speech, Normal strength at 5/5 x4 extr, Normal tone, Normal affect Laboratory Data at Discharge: WBC 9.20 K/uL (4.3-10.9) 09/01/21 02:51 Hgb 12.1 g/dL (13.6-17.9) L 09/01/21 02:51 Hct 36.7 % (39.6-49.0) L 09/01/21 02:51 Plt Count 264 K/uL (152-406) 09/01/21 02:51 PT 13.0 SECONDS (9.5-12.5) H 08/31/21 22:19 INR 1.13 08/31/21 22:19 Sodium 140 mmol/L (136-145) 09/03/21 05:28 Potassium 4.3 mmol/L (3.5-5.1) 09/03/21 05:28 BUN 19 mg/dL (7-18) H 09/03/21 05:28 Creatinine 0.95 mg/dL (0.55-1.3) 09/03/21 05:28 Glucose 151 mg/dL (74-106) H 09/03/21 05:28 Phosphorus 3.7 mg/dL (2.5-4.9) 09/01/21 02:51 Magnesium 1.9 mg/dL (1.8-2.4) 09/03/21 05:28 Total Bilirubin 0.3 mg/dL (0.2-1.0) 09/01/21 02:51 AST 21 U/L (15-37) 09/01/21 02:51 ALT 40 U/L (12-78) 09/01/21 02:51 Alkaline Phosphatase 51 U/L (45-117) 09/01/21 02:51 Troponin I < 0.02 ng/mL (0.0-0.045) 09/02/21 07:54 Triglycerides 180 mg/dL (<150) H 09/01/21 02:51 Cholesterol 194 mg/dL (<200) 09/01/21 02:51 HDL Cholesterol 45 mg/dL (40-60) 09/01/21 02:51 Cholesterol/HDL Ratio 4.31 09/01/21 02:51 Home Medications: Lisinopril/Hydrochlorothiazide [Lisinopril-Hctz 10-12.5 mg Tab] 1 each PO DAILY 09/01/21 Metformin HCl 1,000 mg PO BID 09/01/21 Metoprolol Tartrate [Lopressor*] 50 mg PO BID 09/01/21 Oxybutynin Chloride 5 mg PO BEDTIME 09/01/21 Aspirin [Aspirin EC 81 MG] 81 mg PO DAILY #90 tablet. 09/04/21 Atorvastatin Calcium [Lipitor] 40 mg PO BEDTIME #30 tab 09/04/21 New Medications: Aspirin [Aspirin EC 81 MG] 81 mg PO DAILY #90 tablet. Atorvastatin Calcium [Lipitor] 40 mg PO BEDTIME #30 tab Physician Discharge Instructions: Patient presented with chest pain. Patient was admitted for further evaluation and treatment. Cardiac enzymes unremarkable. Patient continued to have chest pain suspicious for unstable angina. Echo showed ejection fraction around 60 to 65%. Moderate aortic stenosis noted. Cardiology evaluated the patient. Cardiology recommended heart catheterization to further evaluate his condition. Heart catheterization performed showed normal coronaries. At discharge patient without chest pain. Blood pressure improved. At discharge patient may continue with aspirin 81 mg daily, metoprolol 50 mg 1 pill twice daily, lis inopril hydrochlorothiazide 10/12.5 mg daily, and Lipitor 40 mg daily. Recommend follow-up with PCP within 1 week to follow-up his hospitalization. Patient may return to work on Saturday. Patient with hypertension. Medications adjusted. Blood pressure improved with current medication. At discharge patient will continue with metoprolol 50 mg 1 pill twice daily and lisinopril hydrochlorothiazide 10/12.5 mg daily. Recommend to maintain blood pressure less than 130/80. Further adjustment can be done by his PCP. Follow-up with PCP and cardiology to monitor his progress. Patient with hyperlipidemia. LDL 113. At discharge patient will continue with Lipitor 40 mg daily. Recommend to recheck labCMP and fasting lipid panel in 1 to 3 months to monitor his progress. Patient with diabetes mellitus type 2. Hemoglobin A1c 7.3. Metformin was held in preparation for heart catheterization. Patient will need to continue to hold Metformin for at least 48 hours. Metformin can be restarted after 48 hours. Recommend to maintain blood sugar less than 140 fasting and less than 200 after meals. Further adjustment can be done by his PCP if blood sugar remains above 200. Recommend to recheck hemoglobin A1c every 3 months to monitor his progress. Recommend follow-up with PCP to further monitor and address. Patient with urinary incontinence. At discharge patient may continue with ox ybutynin 5 mg daily. Patient with obesity, BMI 44.8. Lifestyle modification education provided. Diet: ADA Activity: Ad ysabel Followup: NONE,NONE [Primary Care Provider] - Time spent managing pt's care (in minutes): 55
[2021-09-04 18:18] VITALS: O2SAT 99
[2021-09-04 18:46] VITALS: BP 139/72
[2021-09-04] MEDS ORDERED: PNEUMOCOCCAL VACCINE 0.5 ML IMVAC ONE (20:17)
[2021-09-04] MEDS ORDERED: INFLUENZA VACCINE (for 6+ mo) 0.5 ML DOSE IMVAC ONE (20:17)
== END 2021-09-04 20:15 | disposition home or self-care (01) | DRG 287 ==
LOC: ER 21:45 → INTOOBSV 23:44 → OBSVTOIN 23:44 → ERHOLD 23:44 → 2ND 09-01 00:47 → OBSVTOIN 09-02 08:37
PROVIDERS: ADMIT Hospitalist; ATTEND Hospitalist
PROC: B201YZZ Plain Radiography of Multiple Coronary Arteries using Other Contrast (ICD-10-PCS; principal; 2021-09-04)
DX: I20.0 Unstable angina (principal); Z68.41 Body mass index [BMI] 40.0-44.9, adult; Q24.5 Malformation of coronary vessels; I10 Essential (primary) hypertension; E78.5 Hyperlipidemia, unspecified; E11.9 Type 2 diabetes mellitus without complications; R32 Unspecified urinary incontinence; E66.9 Obesity, unspecified; I35.0 Nonrheumatic aortic (valve) stenosis; Z23 Encounter for immunization; Z20.822 Contact with and (suspected) exposure to COVID-19
CPT/HCPCS: 36415; 71045; 80048; 80053; 80061; 80076; 82607; 82728; 82746; 82947; 83036; 83540; 83735; 83880; 84100; 84439; 84443; 84466; 84484; 85025; 85610; 90471; 90732; 93005; 93306; 93460; 94760; 99285; C1760; C1893; G0378; J0360; J1644; J1650; J2250; J2270; J2405; J3010; J7040; Q2035; U0003

== ENCOUNTER 2022-12-28 09:36 | Emergency (ER) | payer BC ==
--- OUTSIDE RECORDS SUMMARY | 2022-12-28 09:40 | XMS REPORT | Continuity of Care Document ---
:1960 Author Organization [facility] t Address [address] [place] [address] Care Team Providers Name Role Phone Gino Olguin Attending Clinician Unavailable Gino Olguin Admitting Clinician Unavailable Chantelle Echeverria Admitting Clinician Unavailable Payers Payer Name Policy Type Policy Number Effective Date Expiration Date S ource Problems This patient has no known problems. Allergies, Adverse Reactions, Alerts Allergy Allergy Status Severity Reaction(s) Onset Inactive Treating Comm ents Source Name Type Date Date Clinician No Known DA Active U [facility] Allergie 6-17 [facility] s 00:00: d 00 [facility] Medications This patient has no known medications. Procedures Procedure Date / Time Performed Performing Clinician [facility] stefan [id number] 2022-07-10 00:00:00 IDMANISH [facility] [id number] [facility]22[facility]07[facility]10 [facility] Start End Encounter Admission Attending Care Care Encounter Source Date/Time Date/Time Type Type Clinicians Facility Department ID 2022-07-10 2022-07-12 Inpatient Gino Boogie MEDI.01 LA00 [id number] [facility] 08:02:00 10:39:00 76 [facility] 2022-04-27 2022-04-27 Outpatient Gino Boogie [facility] LA0 [id number] [facility] 11:00:00 11:00:00 00 [facility] 2022-04-12 2022-04-12 Outpatient EL Gino Olguin RADI LA0 [id number] [facility] 13:28:00 13:28:00 51 [facility] Results Test Description Test Time Test Comments Results Result Comments Source SURGICAL 2022-07-13 16:40:00 Test Item Value Reference Range Interpretation Comme nts SURGICAL RUN DATE: (test 07/13/22 [facility] Reina Pearadelia d - LAB PAGE 1 RUN TIME: 1640 Specimen Inquiry RUN USER: INTERFACE code = PATIENT: DAR MAGGIE RODRIGUEZ ACCHector #: [id number] LOC: JANELLE #: [id number] AGE/SX: 61/M ROOM: RE07/10/22REG DR: Gino Olguin : 56 BED: 1 DIS: 07/12/22 STATUS: DIS IN TLOC: SPEC #: 22:[facility]:[id number] RECD: 07/11/22545 STATUS: EJ CAMEJO #: [id number] EDILIA: 07/10/221414 [facility] DR: Gino Olguin MD ENTERED: 07/11/22 SP TYPE: SURGICAL OTHR DR: Chantelle Echeverria RAIL FILLER ORDERED: 16436/2, 13800, ANATOMIC SPEC, SPECIMEN TRAC K COPIES TO: Chantelle Echeverria RAIL FILLER [address] [place] [address] [email or web address] [address] [facility] [address] [place] [address] PROCEDURES: 09249 (07/13/22) 25088 (07/13/22) SPECIMEN TRACK (07/11/22) TISSUE S: A. RENAL BIOPSY MEDICAL - TUMOR MARGIN 1# B. RENAL BIOPSY MEDICAL - TUMOR MARGIN 2# C. RENAL BIOPSY ME DICAL - RIGHT RENAL MASS CAP CANCER SUMMARY RENAL CELL CARCINOMA Procedure: Segmental resection Specimen Laterality: Right, anterior mid upper poleTumor Size: 2.3 x 2.2 x 2.0 cm (clinically 3 cm)Tumor Focal ity: One tumor noduleHistologic Type: Clear cell renal cell carcinomaSarcomatoid Feature s: NegativeRhabdoid Features: NegativeHistologic Grade: 2 Tumor Necrosis: NegativeTumor Extension: Con fine to kidneyMargins: NegativeRegional Lymph Nodes: N.A.Pathologic Stage Classification (pTNM, AJCC 8 th Edition)Primary Tumor: pT1 Regional Lymph Nodes: N/A CONTINUED ON NEXT PAGE RUN DATE: 07/13/22 [facility] Nuno DoSifteo - LAB PAGE 2 RUN TIME: 1640 Specimen Inquiry RUN USER: INTERFACE SPEC #: 22:[facility]:[id number] PATIENT: MAGGIE RODRIGUEZ #[id number] (Continued) CAP CANCER SUMMARY (Continue d) Distant Metastasis: N.A. FINAL DIAGNOSIS A. Renal tissue segment, right side, designated margin #1, excision: - Renal parenchyma including capsule identified, no morphological alteration- Cauterized surgi padmini margin, no tumor present B. Renal tissue segment, right side, designated margin #2, excision: - Renal cortex parenchyma, no morphological alteration- Inked margin, no tumor present C. 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 Suggest clinical an d radiologiccorrelation. Findings were communicated to Dr. Gino Olguin on 07/13/2022 at 3:27 pm. GROSS D ESCRIPTION A. Tumor margin #1. It consists of a segment of fibrous michel tissue measuring 2.2 x 1.2 x 0.7 cm. It has a partially cauterized margin. The margin is inked blue, it is sectionedand entirely sub mitted as A1. B. Tumor margin #2. It consists of a single michel tissue fragment measuring 0.8 x 0.5 x 0.3cm. The margin of resection is inked green, it is trisected and entirely submittedas B1. C. Right renal mass. It consists of a segment of kidney with attached perirenal adiposetissue. It measures 4 .2 x 3.5 x 3 cm. The fat has a thickness of 1.5 cm. The kidney isinked green and the margin of resection is inked black. Cut sections reveal a hemorrhagicsurface with a well-circumscribed mass mick uring 2.3 x 2.2 x 2 cm. No invasion of thecapsule is grossly identified. Multiple sections submitted as C1-C7. Technical tissue processing and slide preparation performed at [facility] [address], [place] [address] Unless gross only, the diagnosis is based upon microscopic examination.Immu nohistochemistry: This test was developed and its performance characteristicsdetermined by this laboratory. It has not been approved nor does it need approval by the USFDA. Appropriate positive and negative controls are reviewed and judged to be acceptable.This laboratory is certified unde r the Clinical Laboratory Improvement Amendments (CLIA-88)as qualified to perform high complexity clin [facility] laboratory testing. CONTINUED ON NEXT PAGE RUN DATE: 07/13/22 [facility] LAB PAGE 3 RUN TIME: 1640 Specimen Inquiry RUN USER: INTERFACE SPEC #: 22:[facility]:[id number] PATIENT: MAGGIE RODRIGUEZ #[id number] (Continued) MICROSCOPIC DESCRIPTION Micr oscopic examination is performed on all specimens and the findings areincorporated into the final diagnosis. Please see ac sánchez for findings. Signed SIGNATURE ON PEYMAN [employer]ello[employer]ota 07/13/22 1640 END OF REPORT BASIC METABOLIC [id number] 04:49:00 Test Item Value Reference Range Interpretation Comments SODIUM (test code = NA) 139 mmol/L 134-147 N POTASSIUM (test code = 4.0 mmol/L 3.4-5.0 N K) CHLORIDE (test code = 109 mmol/L 100-108 H CL) CARBON DIOXIDE (test 26 mmol/L 21-32 N code = CO2) ANION GAP (test code = 4.0 GAP calc 4.0-15.0 N GAP) GLUCOSE (test code = 113 MG/DL 70-110 H GLU) BLOOD UREA NITROGEN 21 MG/DL 7-18 H (test code = BUN) GLOMERULAR FILTRATION >=60 max estimate >60 RATE (test code = GFR) estGFR CREATININE (test code = 1.0 MG/DL 0.8-1.3 N CREAT) CALCIUM (test code = CA) 8.7 MG/DL 8.5-10.1 N CBC W/AUTO [id number] 04:28:00 Test Item Value Reference Range Interpretation Comments WHITE BLOOD CELL (test code = 9.1 K/mm3 3.5-11.0 N WBC) RED BLOOD CELL (test code = 3.96 M/mm3 4.70-6.10 L RBC) HEMOGLOBIN (test code = HGB) 10.6 G/DL 12.3-15.9 L HEMATOCRIT (test code = HCT) 32.9 % 35.8-46.7 L MEAN CELL VOLUME (test code = 83.1 Fl 86.3-98.9 L MCV) MEAN CELL HGB (test code = MCH) 26.8 pg 28.9-34.4 L MEAN CELL HGB CONCETRATION 32.2 G/DL 32.1-34.5 N (test code = MCHC) RED CELL DISTRIBUTION WIDTH 14.3 SD 11.5-14.5 N (test code = RDW) PLATELET COUNT (test code = 226 K/mm3 150-450 N PLT) MEAN PLATELET VOLUME (test code 9.50 fL 7.0-9.6 N = MPV) NEUTROPHIL % (test code = NT%) 67.2 % 40-76 IMMATURE GRANULOCYTE % (test 0.2 % 0.0-5.0 N code = IG%) LYMPHOCYTE % (test code = LY%) 22.5 % 20.5-51.1 N MONOCYTE % (test code = MO%) 7.9 % 1.7-9.3 N EOSINOPHIL % (test code = EO%) 1.8 % 0.0-6.0 N BASOPHIL % (test code = BA%) 0.4 % 0.0-2.0 N NUCLEATED RBC % (test code = 0.0 /100WBC% 0.0-1.0 N NRBC%) NEUTROPHIL # (test code = NT#) 6.1 K/mm3 1.8-7.6 N IMMATURE GRANULOCYTE # (test 0.02 x10 3/uL 0.00-0.03 N code = IG#) LYMPHOCYTE # (test code = LY#) 2.1 K/mm3 0.6-3.0 N MONOCYTE # (test code = MO#) 0.7 K/mm3 0.2-1.5 N EOSINOPHIL # (test code = EO#) 0.2 K/mm3 0.0-0.4 N BASOPHIL # (test code = BA#) 0.0 K/mm3 0.0-0.2 N NUCLEATED RBC # (test code = 0.0 K/mm3 0.00-0.01 N NRBC#) MANUAL DIFF REQUIRED (test code NO DIFF/SCN CRITERIA = MDIFF) GLUCOSE BEDSIDE [id number] 20:19:00 Test Item Value Reference Range Interpretation Comments GLUCOSE BEDSIDE TESTING (test code 113 mg/dL 70-110 H = GLUBED) GLUCOSE BEDSIDE [id number] 16:52:00 Test Item Value Reference Range Interpretation Comments GLUCOSE BEDSIDE TESTING (test code 127 mg/dL 70-110 H = GLUBED) GLUCOSE BEDSIDE [id number] 11:57:00 Test Item Value Reference Range Interpretation Comments GLUCOSE BEDSIDE TESTING (test code 133 mg/dL 70-110 H = GLUBED) GLUCOSE BEDSIDE [id number] 08:21:00 Test Item Value Reference Range Interpretation Comments GLUCOSE BEDSIDE TESTING (test code 118 mg/dL 70-110 H = GLUBED) CBC W/AUTO [id number] 05:33:00 Test Item Value Reference Range Interpretation Comments WHITE BLOOD CELL (test code = 10.4 K/mm3 3.5-11.0 N WBC) RED BLOOD CELL (test code = 3.93 M/mm3 4.70-6.10 L RBC) HEMOGLOBIN (test code = HGB) 10.6 G/DL 12.3-15.9 L HEMATOCRIT (test code = HCT) 32.9 % 35.8-46.7 L MEAN CELL VOLUME (test code = 83.7 Fl 86.3-98.9 L MCV) MEAN CELL HGB (test code = MCH) 27.0 pg 28.9-34.4 L MEAN CELL HGB CONCETRATION 32.2 G/DL 32.1-34.5 N (test code = MCHC) RED CELL DISTRIBUTION WIDTH 14.0 SD 11.5-14.5 N (test code = RDW) PLATELET COUNT (test code = 232 K/mm3 150-450 N PLT) MEAN PLATELET VOLUME (test code 9.20 fL 7.0-9.6 N = MPV) NEUTROPHIL % (test code = NT%) 84.4 % 40-76 H IMMATURE GRANULOCYTE % (test 0.4 % 0.0-5.0 N code = IG%) LYMPHOCYTE % (test code = LY%) 9.4 % 20.5-51.1 L MONOCYTE % (test code = MO%) 5.7 % 1.7-9.3 N EOSINOPHIL % (test code = EO%) 0.0 % 0.0-6.0 N BASOPHIL % (test code = BA%) 0.1 % 0.0-2.0 N NUCLEATED RBC % (test code = 0.0 /100WBC% 0.0-1.0 N NRBC%) NEUTROPHIL # (test code = NT#) 8.8 K/mm3 1.8-7.6 H IMMATURE GRANULOCYTE # (test 0.04 x10 3/uL 0.00-0.03 H code = IG#) LYMPHOCYTE # (test code = LY#) 1.0 K/mm3 0.6-3.0 N MONOCYTE # (test code = MO#) 0.6 K/mm3 0.2-1.5 N EOSINOPHIL # (test code = EO#) 0.0 K/mm3 0.0-0.4 N BASOPHIL # (test code = BA#) 0.0 K/mm3 0.0-0.2 N NUCLEATED RBC # (test code = 0.0 K/mm3 0.00-0.01 N NRBC#) MANUAL DIFF REQUIRED (test code NO DIFF/SCN CRITERIA = MDIFF) BASIC METABOLIC [id number] 05:28:00 Test Item Value Reference Range Interpretation Comments SODIUM (test code = NA) 140 mmol/L 134-147 N POTASSIUM (test code = 4.4 mmol/L 3.4-5.0 N K) CHLORIDE (test code = 108 mmol/L 100-108 N CL) CARBON DIOXIDE (test 24 mmol/L 21-32 N code = CO2) ANION GAP (test code = 8.0 GAP calc 4.0-15.0 N GAP) GLUCOSE (test code = 125 MG/DL 70-110 H GLU) BLOOD UREA NITROGEN 22 MG/DL 7-18 H (test code = BUN) GLOMERULAR FILTRATION >=60 max estimate >60 RATE (test code = GFR) estGFR CREATININE (test code = 1.0 MG/DL 0.8-1.3 N CREAT) CALCIUM (test code = CA) 8.7 MG/DL 8.5-10.1 N GLUCOSE BEDSIDE [id number] 20:27:00 Test Item Value Reference Range Interpretation Comments GLUCOSE BEDSIDE TESTING (test code 152 mg/dL 70-110 H = GLUBED) HGB [id number] 16:56:00 Test Item Value Reference Range Interpretation Comments HEMOGLOBIN (test code = HGB) 10.4 G/DL 12.3-15.9 L HEMATOCRIT (test code = HCT) 32.2 % 35.8-46.7 L Comment: Do in PACUBASIC METABOLIC [id number] 16:55:00 Test Item Value Reference Range Interpretation Comments SODIUM (test code = NA) 141 mmol/L 134-147 N POTASSIUM (test code = 3.9 mmol/L 3.4-5.0 N K) CHLORIDE (test code = 109 mmol/L 100-108 H CL) CARBON DIOXIDE (test 23 mmol/L 21-32 N code = CO2) ANION GAP (test code = 9.0 GAP calc 4.0-15.0 N GAP) GLUCOSE (test code = 142 MG/DL 70-110 H GLU) BLOOD UREA NITROGEN 19 MG/DL 7-18 H (test code = BUN) GLOMERULAR FILTRATION >=60 max estimate >60 RATE (test code = GFR) estGFR CREATININE (test code = 0.9 MG/DL 0.8-1.3 N CREAT) CALCIUM (test code = CA) 8.3 MG/DL 8.5-10.1 L Comment: Do in PACUGLUCOSE BEDSIDE [id number] 16:05:00 Test Item Value Reference Range Interpretation Comments GLUCOSE BEDSIDE TESTING (test code 124 mg/dL 70-110 H = GLUBED) - XR CHEST 1 [id number] 10:04:00 [facility]OD[facility]IE HENRY : 1960 Sex: M Name: MAGGIE RODRIGUEZ [place] : 1960 Age/S: 61 / M [id number] Unit #: [id number]: [place] [address] Phys: Gene Valenzuela MD Acct: [id number] Dis Date: Status: PRE SDC PHONE #: [phone] Exam Date: 07/09/2022913 FAX #: Reason: P.A.T EXAMS: CPT: [id number] XR CHEST 1 [id number] Fluoro Time: DAP (Gy m2): Air Kerma (mGy): CHEST 1 VIEW: INDICATION: P.A.T COMPARISON: There are no prior studies for comparison. Location: C3 A single portable AP view of the chest demonstratesborderline heart size with calcified elongated aorta. The lung ellis are clear. No apparent pleuraleffusion nor pneumothorax. The visualized bony structures are unremarkable. IMPRESSION: 1. No acute cardiopulmonary findings seen. at 1004 Reported and signed by: Nba Corbin M.D. CC: Gene Valenzuela MD; Chantelle Echeverria RAIL FILLER;Gino Olguin MD PAGE 1 Signed Report Name: MAGGIE RODRIGUEZ [place] : 1960 Age/S: 61 / M [id number] Unit #: [id number] Loc: [place] [address] Phys: Gene Valenzuela MD Acct: [id number] Dis Date: Status: PRE SDC PHONE #: [phone] Exam Date: 07/09/2022913 FAX #: Reason: P.A.T EXAMS: CPT: [id number] XR CHEST 1 V 42598 Fluoro Time: DAP (Gy m2): Air Kerma (mGy): (Continued) Technologist: Leonardo Cortes, RT(R)(CT) Trnscb Date/Time: 07/09/2022 (1004) [id number] Orig Print D/T: S: 07/09/2022 (1007) PAGE 2 Signed ReportBASIC METABOLIC [id number] 09:52:00 Test Item Value Reference Range Interpretation Comments SODIUM (test code = NA) 141 mmol/L 134-147 N POTASSIUM (test code = K) 4.0 mmol/L 3.4-5.0 N CHLORIDE (test code = CL) 110 mmol/L 100-108 H CARBON DIOXIDE (test code = CO2) 24 mmol/L 21-32 N ANION GAP (test code = GAP) 7.0 GAP calc 4.0-15.0 N GLUCOSE (test code = GLU) 103 MG/DL 70-110 N BLOOD UREA NITROGEN (test code = 39 MG/DL 7-18 H BUN) GLOMERULAR FILTRATION RATE (test 54 estGFR >60 L code = GFR) CREATININE (test code = CREAT) 1.4 MG/DL 0.8-1.3 H CALCIUM (test code = CA) 9.4 MG/DL 8.5-10.1 N PROTHROMBIN [id number] 09:32:00 Test Item Value Reference Range Interpretation Comments PT PATIENT (test 14.2 SECONDS 9.3-12.9 H code = PTP) INTERNATIONAL NORMAL 1.24 INR Unit 0.8-1.2 H TARGE T INR BY RATIO (test code = INDICATIO N Indication INR) INR1. Prophylax is of venous thrombos is 2.0 - 3.0 (orthoped ic surgery), Proph ylaxis of venous throm bosis (other than hig h-risk surgery), Treat ment of Deep Vein Thrombosis/Pulm onary Embolism, Preve ntion of systemic emb olism - Tissue heart va lves, Acute Myocardia l Infarction (to prevent systemic emboli sm), Valvular heart disease, Acute Myocardial Infa rction (to prevent sys temic embolism), Valv ular heart disease, Atrial Fibrillation, Bileaflet mecha nical valve in aortic position.2. Mec hanical prosthetic valv es (high risk), 2. 5 - 3.5 Presence of Lup us Anticoagulant o r Antiphospholipi d Antibodies, Pre vention of systemic emb olism - Acute Myocardia l Infarction (to prevent recurrent infar ct). THROMBOPLASTIN TIME [id number] 09:32:00 Test Item Value Reference Range Interpretation Comments THROMBOPLASTIN TIME PARTIAL 34.2 SECONDS 26-35 N (test code = PTT) COVID 19 INHOUSE [id number] 09:26:00 Test Item Value Reference Range Interpretation Comments COVID 19 INHOUSE AG NEGATIVE Negative Per manu facturer, (test code = negative result s should [id number]) be treated aspr esumptive and, if inconsi stent with clinical signs andsymptoms or necessary for patient man agement, should betested with an alternative mol ecular assay. Negative resultsdo not preclude SA RS-CoV-2 infection and s hould not be usedas the s ole basis for patient man agement decisions. Nega tive results should be considered in t he context of apatient's r ecent exposures, hist ory, presence of cli nicalsigns and symptoms co nsistent with COVID-19. CBC W/AUTO [id number] 09:17:00 Test Item Value Reference Range Interpretation Comments WHITE BLOOD CELL (test code = 7.9 K/mm3 3.5-11.0 N WBC) RED BLOOD CELL (test code = 4.35 M/mm3 4.70-6.10 L RBC) HEMOGLOBIN (test code = HGB) 11.5 G/DL 12.3-15.9 L HEMATOCRIT (test code = HCT) 36.0 % 35.8-46.7 N MEAN CELL VOLUME (test code = 82.8 Fl 86.3-98.9 L MCV) MEAN CELL HGB (test code = MCH) 26.4 pg 28.9-34.4 L MEAN CELL HGB CONCETRATION 31.9 G/DL 32.1-34.5 L (test code = MCHC) RED CELL DISTRIBUTION WIDTH 14.2 SD 11.5-14.5 N (test code = RDW) PLATELET COUNT (test code = 268 K/mm3 150-450 N PLT) MEAN PLATELET VOLUME (test code 9.40 fL 7.0-9.6 N = MPV) NEUTROPHIL % (test code = NT%) 59.0 % 40-76 N IMMATURE GRANULOCYTE % (test 0.1 % 0.0-5.0 N code = IG%) LYMPHOCYTE % (test code = LY%) 30.6 % 20.5-51.1 N MONOCYTE % (test code = MO%) 6.0 % 1.7-9.3 N EOSINOPHIL % (test code = EO%) 3.7 % 0.0-6.0 N BASOPHIL % (test code = BA%) 0.6 % 0.0-2.0 N NUCLEATED RBC % (test code = 0.0 /100WBC% 0.0-1.0 N NRBC%) NEUTROPHIL # (test code = NT#) 4.6 K/mm3 1.8-7.6 N IMMATURE GRANULOCYTE # (test 0.01 x10 3/uL 0.00-0.03 N code = IG#) LYMPHOCYTE # (test code = LY#) 2.4 K/mm3 0.6-3.0 N MONOCYTE # (test code = MO#) 0.5 K/mm3 0.2-1.5 N EOSINOPHIL # (test code = EO#) 0.3 K/mm3 0.0-0.4 N BASOPHIL # (test code = BA#) 0.1 K/mm3 0.0-0.2 N NUCLEATED RBC # (test code = 0.0 K/mm3 0.00-0.01 N NRBC#) MANUAL DIFF REQUIRED (test code NO DIFF/SCN CRITERIA = MDIFF) - CT ABD PELVIS W WO [id number] 13:30:00 [facility] 1960 Sex: M Name: MAGGIE RODRIGUEZ [facility] : 1960 Age/S: 61 / M [address] Unit #: [id number] Loc: [place] [address] Phys: Gino Olguin MD Acct: [id number] Dis Date: Status: REG CLI PHONE #: [phone] Exam Date: 04/27/2022 1300 FAX #: Reason: RENAL CYST EXAMS: CPT: [id number] CT [place]VISW [place] CONT [id number] EXAM: - CT ABD PELVIS W WO CONT INDICATION: RENAL CYST - COMPARISON: None TECHNIQUE: CT of the abdomen and pelvis was performed with and without intravenous contrast. All CT scans are performed using radiation dose reduction technique. Technical factors are evaluated and adjusted to insure appropriate moderation of exposure. Automated dose management technology is applied to adjust the radiation dose to minimize exposure while achieving a diagnostic quality image. FINDINGS: Comparedto ultrasound on 04/12/2022. Kidneys: Horseshoe kidney morphology. In the upper pole of the right portion, there is an enhancing solid mass noted measuring 3.1 x 2.5 cm in size. In the upper pole of theleft portion, there is a 3.6 x 3 cm density is noted with internal dependent calcifications, consistent with a Bosniak type II cyst. Additionally in the kidney, there are 3-4 round densities identifiedmeasuring up to 4.4 x 4.3 cm in size, consistent with Bosniak type I cysts. No hydronephrosis or nephrolithiasis seen. Visualized chest: No significant abnormality seen. Hepatobiliary: Liver appears unremarkable. Gallbladder appears unremarkable. No intrahepatic or extrahepatic biliary dilatation is seen. Hepatic and portal veins appear patent. Pancreas: Appears unremarkable. Spleen: Appears unremarkable. Adrenal glands: Appear unremarkable. Gastrointestinal: Appendix: Is seen on axial series, image5 0. It appears unremarkable. Bowel: No bowel obstruction or ileus seen. PAGE 1 Signed Report (CONTINUED) Name: MAGGIE RODRIGUEZ [facility] : 1960 Age/S: 61 / M [address] Unit #: [id number] Loc: [place] [address] Phys: Gino Olguin MD Acct: [id number] Dis Date: Status: REG CLI PHONE #: [phone] Exam Date: 04/27/2022 1300 FAX #: Reason: RENAL CYST EXAMS: CPT: [id number] CT ABD PELVIS W WO CONT [address]2747 (Continued) Vascular: Aorta does not appear aneurysmal. Lymph nodes: No enlarged lymph nodes seen. Peritoneum: No ascites or free air is seen. Genitourinary:Urinary bladder appears to be mildly distended. Soft tissues:No significant abnormality seen. Bones:No acute or destructive osseous process seen. IMPRESSION: Horseshoe kidney. Solid mass in the upper pole of the right portion measuring 3.1 x 2.5 cm in size, presumed malignancy unless proven otherwise. Additional Bosniaktype II and type I cysts in the kidney. Attention on follow-up examinations. Please refer to the findings section for additional details. at 1330 Reported and signed by: Slava Orosco M.D. CC: Chantelle Echeverria RAIL FILLER; Gino Olguin MD Technologist:Petra Lee, RT,(R),(CT) CTDI: DLP: Trnscb Date/Time: 04/27/2022 (595) [email or web address] Orig Print D/T:S: 04/27/2022 (0980) PAGE 2 Signed ReportCREATININE W ESTIMATED [id number] 12:52:00 Test Item Value Reference Range Interpretation Comments GLOMERULAR FILTRATION RATE (test 34 estGFR >60 L code = GFR) CREATININE (test code = CREAT) 2.1 MG/DL 0.8-1.3 H BLOOD UREA [id number] 12:52:00 Test Item Value Reference Range Interpretation Comments BLOOD UREA NITROGEN (test code = 36 MG/DL 7-18 H BUN) - US RETROPERITONEAL [id number] 16:21:00 [facility] : 1960 Sex: M Name: MAGGIE RODRIGUEZ [facility] : 1960 Age/S: 61 / M [address] Unit #: [id number] Loc: [place] [address] Phys: Gino Olguin MD Acct: [id number] Dis Date: Status: REG CLI PHONE #: [phone] Exam Date: 04/12/20221428 FAX #: Reason: MICROSCOPIC HEMATURIA EXAMS: CPT: [id number] [facility] [address] RE[facility] ULTRAS[facility] DICTATION LOCATION: A 17 History: Microscopic hematuria Technique: Transabdominal sonography of the kidneys and bladder were performed. No prior exams are available for comparison. Findings: Both kidneys are normal in size, shape and echotexture. Renal cortical thickness is normal on each side above 1.5 cm. The right kidney measures 12.1 x 5.8 x 5.6 cm, and the left kidney measures 11.7 x 6.1 x 5.1 cm. In the superior aspect of the right kidney, there appears to be a solid mass that measures 2.6 cm in maximum diameter. There are several small cysts on the right kidney that measure up to 2.2 cm. In the left kidney, there is a complex cyst that measures 3.1 cm. No calculus, hydronephrosis or perirenal inflammatory process is seen on either side. No obvious bladder abnormality is seen. IMPRESSION: 1. Possible 2.6 cm mass in the right kidney. 2. Complex cyston the left kidney. 3. A contrast- enhanced CT is recommended for further evaluation. 4. No other significant findings. at 1621 Reported and signed by: Marky Greenwood Jr., M.D. CC: Chantelle Echeverria RAIL FILLER; Gino Olguin MD Technologist: Asia Ba RDMS Trnscb Date/Time: 04/12/2022 (1621) [facility] PAGE 1 Signed ReportName: MAGGIE RODRIGUEZ [facility] : 1960 Age/S: 61 / M [id number] [place] Unit #: [id number] Loc: [place] [address] Phys: Gino Olguin MD Acct: [id number] Dis Date: Status: REG CLI PHONE #: [phone] Exam Date: 04/12/20221428 FAX #: Reason: MICROSCOPIC HEMATURIA EXAMS: CPT: [id number] [employer] Mobile COM [id number] (Continued) Orig Print D/T: S: 04/12/2022 (5310) Probe: PAGE 2 Signed Report
[2022-12-28 11:11] LABS: SARS-COV-2 RT PCR POSITIVE (NEGATIVE)
--- NOTE | 2022-12-28 11:18 | EDPHYS ---
Physician Documentation [facility] Name: Arya Muro Jr Age: 62 yrs Sex: Male : 1960 Arrival Date: 12/28/2022 Time: 09:41 Bed 11 Private MD: ED Physician Sahil Hughes HPI: 12/28 10:52 This 62 yrs old Male presents to ER via Ambulatory with complaints of covid+, kb needs retest. 10:52 The patient or guardian reports flu symptoms, myalgias. Onset: The symptoms/episode kb began/occurred 2 day(s) ago. Severity of symptoms: At their worst the symptoms were moderate, in the emergency department the symptoms are unchanged. Modifying factors: The symptoms are alleviated by nothing, the symptoms are aggravated by nothing. Associated signs and symptoms: Pertinent positives: sore throat, Pertinent negatives: chest pain, diarrhea, ear ache, fever, nausea, rhinorrhea, vomiting. The patient has not experienced similar symptoms in the past. The patient has not recently seen a physician. Historical: - Allergies: 10:13 No Known Allergies; ph - PMHx: 10:13 diabetes mellitus; Glaucoma; Hypercholesterolemia; Hypertensive disorder; ph - PSHx: 10:13 cataract; knee surgery; ph - Immunization history:: Adult Immunizations unknown. - Social history:: Smoking status: Patient denies any tobacco usage or history of. ROS: 10:51 Respiratory: Negative for shortness of breath, cough, wheezing, and pleuritic chest kb pain. 10:51 Constitutional: Positive for body aches. 10:51 ENT: Positive for sore throat. 10:51 All other systems are negative. Exam: 10:51 Constitutional: This is a well developed, well nourished patient who is awake, alert, kb and in no acute distress. Head/Face: Normocephalic, atraumatic. ENT: Moist Mucous membranes Cardiovascular: Regular rate and rhythm with a normal S1 and S2. No gallops, murmurs, or rubs. No pulse deficits. Respiratory: Respirations even and unlabored. No increased work of breathing. Talking in full sentences Abdomen/GI: Soft, non-tender. No distention Skin: Warm, dry with normal turgor. Normal color. MS/ Extremity: Pulses equal, no cyanosis. Neurovascular intact. Full, normal range of motion. Neuro: Awake and alert, GCS 15, oriented to person, place, time, and situation. Moves all extremities. Normal gait. Vital Signs: 10:10 BP 137 / 87; Pulse 73; Resp 18; Temp 99.0; Pulse Ox 100% on R/A; Weight 97.52 kg; ph Height 5 ft. 2 in. (157.48 cm); 10:10 Body Mass Index 39.32 (97.52 kg, 157.48 cm) ph MDM: 09:57 Patient medically screened. kb 10:52 Data reviewed: vital signs, nurses notes. kb 10:53 Differential Diagnosis: Influenza Upper Respiratory Infection Other covid. kb 10:54 ED course: Patient is a 62-year-old male with a history of diabetes and hypertension kb that presents with body aches and scratchy throat that started 2 nights ago. States he took a home COVID test yesterday that was positive but his employer wanted him to have an official test done at the hospital. Denies cough or congestion or shortness of breath. Will test for COVID and flu.. 11:17 Counseling: I had a detailed discussion with the patient and/or guardian regarding: the kb historical points, exam findings, and any diagnostic results supporting the discharge/admit diagnosis, lab results, the need for outpatient follow up, a family practitioner, to return to the emergency department if symptoms worsen or persist or if there are any questions or concerns that arise at home. 12/28 10:17 Order name: COVID-19/FLU A+B; Complete Time: 11:16 EDMS Administered Medications: No medications were administered Disposition: 14:42 Co-signature as Attending Physician, Sahil Hughes MD I reviewed the patient's care rt provided by the Advanced Practice Provider and agree with the diagnosis and treatment plan. Disposition Summary: 12/28/22 11:18 Discharge Ordered Location: Home kb Condition: Stable kb Diagnosis - SARS-associated coronavirus as the cause of diseases classified elsewhere kb Followup: kb - With: Emergency Department - When: As needed - Reason: Worsening of condition Followup: kb - With: Private Physician - When: 2 - 3 days - Reason: Recheck today's complaints, Continuance of care, Re-evaluation by your physician Discharge Instructions: - Discharge Summary Sheet kb - COVID-19 kb - Viral Illness, Adult kb Forms: - Medication Reconciliation Form kb - Thank You Letter kb - Work release form kb - Antibiotic Education kb - Prescription Opioid Use kb Signatures: Dispatcher [employer] Narda Harris, NUVIA-Angela PEDERSEN-Irene Shore RN RN Sahil Hughes MD MD rt
--- NOTE | 2022-12-28 11:18 | ER ---
Nurse's Notes [facility] Name: Arya Muro Jr Age: 62 yrs Sex: Male : 1960 Arrival Date: 12/28/2022 Time: 09:41 Bed 11 Private MD: Diagnosis: SARS-associated coronavirus as the cause of diseases classified elsewhere Presentation: 12/28 10:10 Chief complaint: Patient states: Tested covid + on home test yesterday, states that employer requires "official test" and wants to be swabbed here, reported symptoms scratchy throat and body aches x 2 days. Coronavirus screen: Vaccine status: Patient reports receiving the 2nd dose of the covid vaccine. Ebola Screen: No symptoms or risks identified at this time. Initial Sepsis Screen: Does the patient meet any 2 criteria? No. Patient's initial sepsis screen is negative. Does the patient have a suspected source of infection? No. Patient's initial sepsis screen is negative. Risk Assessment: Do you want to hurt yourself or someone else? Patient reports no desire to harm self or others. Onset of symptoms was December 28, 2022. 10:10 Method Of Arrival: Ambulatory ph 10:10 Acuity: VANESSA 4 ph Triage Assessment: 10:30 General: Appears in no apparent distress. comfortable, well groomed, Behavior is calm, ph cooperative, appropriate for age. Pain: Complains of pain in body aches. EENT: Reports "scratchy throat". Neuro: Level of Consciousness is awake, alert, obeys commands, Oriented to person, place, time, situation. Cardiovascular: Capillary refill < 3 seconds in bilateral fingers Patient's skin is warm and dry. Respiratory: Airway is patent Respiratory effort is even, unlabored, Respiratory pattern is regular, symmetrical, Breath sounds are clear bilaterally. Denies cough, shortness of breath. GI: No signs and/or symptoms were reported involving the gastrointestinal system. Derm: Skin is healthy with good turgor, Skin is pink, warm \\T\\ dry. Historical: - Allergies: 10:13 No Known Allergies; ph - PMHx: 10:13 diabetes mellitus; Glaucoma; Hypercholesterolemia; Hypertensive disorder; ph - PSHx: 10:13 cataract; knee surgery; ph - Immunization history:: Adult Immunizations unknown. - Social history:: Smoking status: Patient denies any tobacco usage or history of. Screenin:05 [facility] ED Fall Risk Assessment (Adult) History of falling in the last 3 months, ph including since admission No falls in past 3 months (0 pts) Confusion or Disorientation No (0 pts) Intoxicated or Sedated No (0 pts) Impaired Gait No (0 pts) Mobility Assist Device Used Yes (1 pt) Altered Elimination No (0 pt) Score/Fall Risk Level 0 - 2 = Low Risk Oriented to surroundings, Maintained a safe environment, Hourly rounding (assess needs \\T\\ fall precautionary measures) done. Abuse screen: Denies threats or abuse. Denies injuries from another. Nutritional screening: No deficits noted. Tuberculosis screening: No symptoms or risk factors identified. Assessment: 11:00 General: SEE TRIAGE ASSESSMENT. ph Vital Signs: 10:10 BP 137 / 87; Pulse 73; Resp 18; Temp 99.0; Pulse Ox 100% on R/A; Weight 97.52 kg; ph Height 5 ft. 2 in. (157.48 cm); 10:10 Body Mass Index 39.32 (97.52 kg, 157.48 cm) ph ED Course: 09:41 Patient arrived in ED. as 09:56 Narda Balderas [facility]-C [facility]. kb 09:56 Sahil Hughes MD is Attending Physician. kb 10:10 Irene Root, RN is Primary Nurse. ph 10:13 Triage completed. ph 10:14 Arm band placed on Patient placed in an exam room, on a stretcher. ph 11:06 Patient has correct armband on for positive identification. Bed in low position. Call ph light in reach. Side rails up X 1. Pulse ox on. Door closed. Noise minimized. PO fluids given. 11:14 No provider procedures requiring assistance completed. Patient did not have IV access ph during this emergency room visit. Administered Medications: No medications were administered Medication: 11:06 VIS not applicable for this client. ph Outcome: 11:18 Discharge ordered by . kb 11:26 Discharged to home ambulatory. ph 11:26 Condition: good 11:26 Discharge instructions given to patient, Instructed on discharge instructions, follow up and referral plans. Demonstrated understanding of instructions, follow-up care. 11:26 Patient left the ED. ph Signatures: Narda Balderas FNP-C FNP-Giselle Boggs Patricia, RN RN ph
[2022-12-28 11:37] VITALS: BP 137/87; TEMP 99; O2SAT 100
== END 2022-12-28 11:26 | disposition home or self-care (01) ==
LOC: ER 09:36
DX: U07.1 COVID-19 (principal); E11.9 Type 2 diabetes mellitus without complications; I10 Essential (primary) hypertension
CPT/HCPCS: 0240U; 99283